=== PATIENT | female | born 1955 | race Caucasian/White ===

== ENCOUNTER 2018-03-09 13:38 | Emergency (ER) | payer OTHER ==
[~2018-03-09] VITALS: Ht 175.3 cm; Wt 70.0 kg
[~2018-03-09 13:38] MED LIST: CEPH500C3 PO; Z.0.NO CURRENT MEDS
[2018-03-09] MEDS ORDERED: MORPHINE SULFATE 4 MG/ML INJ IV PUSH ONE (13:45)
[2018-03-09] MEDS ORDERED: PROCHLORPERAZINE INJ 10 MG/2 ML VIAL IV PUSH ONE (13:45)
[2018-03-09 13:50] VITALS: BP 133/72
--- NOTE | 2018-03-09 13:55 | PD ---
HPI Chief Complaint: Fall Time Seen by Provider: 13:41 Travel History International Travel<30 days: No Contact w/Intl Traveler<30days: No Traveled to known affect area: No History of Present Illness HPI This is a 62-year-old female who presents with head and left shoulder pain. Patient was plain "basketball" on a horse when she apparently fell off. who states he was observing again, states she fell to her left shoulder and struck her head on the ground. Report is that she was unconscious for nearly 2 minutes. There is no seizure activity. There was slight and incontinence to urine. She denies any neck pain or back pain. She denies any chest or abdominal pain. She reports pain at the top of her left shoulder. She feels is just a bruise as she is able to move it with pain. There are no other complaints at time of examination. PFSH Past Medical History Cardiovascular Problems: Yes (MITRAL VALVE PROLAPSE) ?: Not Menopausal: Yes Past Surgical History Other Surgery: Yes (BREAST AUGMENTATION) Social History Alcohol Use: No Tobacco Use: No Substance Use: No Allergies-Medications (Allergen,Severity, Reaction): Coded Allergies: erythromycin base (Unverified Allergy, Severe, RASH, 03/09/18) Reported Meds & Prescriptions Reported Meds & Active Scripts Active Zofran Odt (Ondansetron Odt) 4 Mg Tab 4 Mg SL Q6HR PRN Review of Systems Except as stated in HPI: all other systems reviewed are Neg Eyes: No: Blurred Vision, Photophobia HENT: Positive: Headaches, Lightheadedness, No: Neck Stiffness, Neck Pain Cardiovascular: No: Chest Pain or Discomfort, Palpitations Respiratory: No: Cough, Shortness of Breath Gastrointestinal: Positive: Nausea, No: Vomiting, Abdominal Pain Genitourinary: Positive: Incontinence (Minimal) Musculoskeletal: Positive: Pain (Left shoulder at the top), No: Limited ROM, Weakness Skin: No Lesions, No Other (No abrasion) Neurologic: Positive: Dizziness, Headache, Incontinence (Slight), No: Weakness , Change in Mentation, Slurred Speech, Paresthesia, Seizures, Sensory Disturbance Physical Exam Narrative GENERAL: Well-developed well-nourished female in no acute respiratory distress. SKIN: Focused skin assessment warm/dry. HEAD: Atraumatic. Normocephalic. EYES: Pupils equal and round. Extraocular muscles were intact. No scleral icterus. No injection or drainage. ENT: No nasal bleeding or discharge. Mucous membranes pink and moist. NECK: Trachea midline. Supple. No posterior spinous process tenderness. CARDIOVASCULAR: Regular rate and rhythm. No murmur appreciated. RESPIRATORY: No accessory muscle use. Clear to auscultation. Breath sounds equal bilaterally. GASTROINTESTINAL: Abdomen soft, non-tender, nondistended. Hepatic and splenic margins not palpable. MUSCULOSKELETAL: No obvious deformities. Tenderness to palpation on the superior portion of her left shoulder. No obvious bony deformity. No abrasions. She does have full range of motion however limited secondary to pain. NEUROLOGICAL: Awake and alert. No obvious cranial nerve deficits. Motor grossly within normal limits. Normal speech. Data Data Last Documented VS Vital Signs Date Time Temp Pulse Resp B/P (MAP) Pulse Ox O2 Delivery O2 Flow Rate FiO2 03/09/18 13:50 133/72 (92) Orders Orders Ct Brain W/O Iv Contrast(Rout) (03/09/18 13:45) Ct Cerv Spine W/O Contrast (03/09/18 13:45) Iv Access Insert/Monitor (03/09/18 13:45) Ecg Monitoring (03/09/18 13:45) Oximetry (03/09/18 13:45) Prochlorperazine Inj (Compazine Inj) (03/09/18 13:45) Ac Joints,Bilat (W/Wo Weights) (03/09/18 13:45) Shoulder, Limited(2vws) (03/09/18 13:45) MDM Medical Decision Making Medical Screen Exam Complete: Yes Emergency Medical Condition: Yes Differential Diagnosis Concussion versus intracranial hemorrhage versus left shoulder injury Narrative Course 62-year-old he and left shoulder show no evidence of acute injury. Patient will be instructed to ice the areas for 20 minutes 2-3 times daily 24-36 hours then moist heat. She will be given a prescription for Compazine 4 nausea. She is instructed to take ibuprofen at home. She has been given 1 shot of Toradol as well as 10 mg of Compazine here in the emergency department. Diagnosis Primary Impression: Closed head injury Additional Impression: Contusion of left shoulder Additional Instructions: Ice left shoulder 2-3 times daily 24-36 hours, then moist heat. Avoid heavy lifting. No riding horses 7 days. Return if feeling worse. Scripts Ondansetron Odt (Zofran Odt) 4 Mg Tab 4 MG SL Q6HR Y for Nausea/Vomiting, #10 TAB 0 Refills Prov: Kris Lynn MD 03/09/18 Disposition: 01 DISCHARGE HOME Condition: Stable Kris Lynn MD March 09, 2018 13:55
--- NOTE | 2018-03-09 14:20 | RADRPT ---
EXAM DATE/TIME: 03/09/2018 13:52 [facility] COMPARISON: CT BRAIN W/O CONTRAST, November 07, 2015, 16:13. INDICATIONS : Fell of horse today. RADIATION DOSE: 56.35 CTDIvol (mGy) MEDICAL HISTORY : Cardiovascular disease. Mitral valve prolapse. SURGICAL HISTORY : None. ENCOUNTER: Initial ACUITY: 1 day PAIN SCALE: 3/10 LOCATION: cranial TECHNIQUE: Multiple contiguous axial images were obtained of the head. Using automated exposure control and adj ustment of the mA and/or kV according to patient size, radiation dose was kept as low as reasonably a chievable to obtain optimal diagnostic quality images. DICOM format image data is available electro nically for review and comparison. FINDINGS: CEREBRUM: The ventricles are normal for age. No evidence of midline shift, mass lesion, hemorrhage or acute in farction. No extra-axial fluid collections are seen. POSTERIOR FOSSA: The cerebellum and brainstem are intact. The 4th ventricle is midline. The cerebellopontine angle i s unremarkable. EXTRACRANIAL: The visualized portion of the orbits is intact. SKULL: The calvaria is intact. No evidence of skull fracture. CONCLUSION: Negative for an acute process Pranay White MD FACR on March 09, 2018 at 14:17 Board Certified Radiologist. This report was verified electronically.
--- NOTE | 2018-03-09 14:24 | RADRPT ---
EXAM DATE/TIME: 03/09/2018 13:52 [facility] COMPARISON: No previous studies available for comparison. INDICATIONS : Fell off horse today. RADIATION DOSE: 15.69 CTDIvol (mGy) MEDICAL HISTORY : Cardiovascular disease. Mitral valve prolapse SURGICAL HISTORY : None. ENCOUNTER: Initial ACUITY: 1 day PAIN SCALE: 4/10 LOCATION: neck TECHNIQUE: Volumetric scanning of the cervical spine was performed. Multiplanar reconstructions in the sagittal, coronal and oblique axial planes were performed. Using automated exposure control and adjustment o f the mA and/or kV according to patient size, radiation dose was kept as low as reasonably achievable to obtain optimal diagnostic quality images. DICOM format image data is available electronically f or review and comparison. FINDINGS: VERTEBRAE: Normal vertebral body height. ALIGNMENT: No evidence of subluxation. The degenerative changes C5-C6 and C6-C7. C2-C3: The bony spinal canal is normal in size. No evidence of disc bulge or herniation. The neural forami na are bilaterally patent. C3-C4: The bony spinal canal is normal in size. No evidence of disc bulge or herniation. The neural forami na are bilaterally patent. C4-C5: Mild facet disease on the right. No stenosis. C5-C6: Moderate uncinate ridging bilateral neural foramina encroachment worse on the right than the left. C6-C7: Moderate uncinate ridging with bilateral neural foramina encroachment worse left than right. C7-T1: The bony spinal canal is normal in size. No evidence of disc bulge or herniation. The neural forami na are bilaterally patent. CONCLUSION: Degenerative changes as described above. No evidence for fracture. Controlled flexion extension films may be of benefit if the patient remains symptomatically. Pranay White MD FACR on March 09, 2018 at 14:20 Board Certified Radiologist. This report was verified electronically.
--- NOTE | 2018-03-09 14:36 | RADRPT ---
EXAM DATE/TIME: 03/09/2018 14:10 [facility] COMPARISON: No previous studies available for comparison. INDICATIONS : Left shoulder pain after falling off a horse today. MEDICAL HISTORY : None. SURGICAL HISTORY : None. ENCOUNTER: Initial ACUITY: 1 day PAIN SCORE: 6/10 LOCATION: Left head of the humerus. FINDINGS: Two view examination of the left shoulder demonstrates no evidence of fracture or dislocation. The g lenohumeral and acromioclavicular joints are maintained. Bony mineralization is normal. CONCLUSION: Negative for fracture or dislocation. Follow up in 7-10 days is suggested if symptoms persist. Pranay White MD FACR on March 09, 2018 at 14:33 Board Certified Radiologist. This report was verified electronically.
--- NOTE | 2018-03-09 14:36 | RADRPT ---
EXAM DATE/TIME: 03/09/2018 14:06 [facility] COMPARISON: No previous studies available for comparison. INDICATIONS : Left shoulder pain after falling off a horse today. MEDICAL HISTORY : None. SURGICAL HISTORY : None. ENCOUNTER: Initial ACUITY: 1 day PAIN SCORE: 6/10 LOCATION: Left head of the humerus. FINDINGS: Frontal examination of both acromioclavicular joints was performed with and without weights. The cor acoclavicular distance is normal. There is no widening of the acromioclavicular joints. No change i n alignment or distance occurs with weights. Lung apex clear CONCLUSION: Negative for fracture or AC separation Pranay White MD FACR on March 09, 2018 at 14:32 Board Certified Radiologist. This report was verified electronically.
[2018-03-09] MEDS ORDERED: ZOFR4TAB3 SL (15:48)
[2018-03-09] MEDS ORDERED: PROC10TA PO (15:51)
[2018-03-09] MEDS ORDERED: KETOROLAC TROMETHAMINE 30 MG/ML (IVP) VIAL IV PUSH ONE (16:00)
== END 2018-03-09 16:12 | disposition home or self-care (01) ==
LOC: NEPE 13:38
DX: S09.90XA Unspecified injury of head, initial encounter (principal); S40.012A Contusion of left shoulder, initial encounter; I34.1 Nonrheumatic mitral (valve) prolapse; V80.010A Animal-rider injured by fall from or being thrown from horse in noncollision accident, initial encounter; Y93.52 Activity, horseback riding
CPT/HCPCS: 70450; 72125; 73030; 73050; 96374; 96375; 99284; J0780; J1885